=== PATIENT | male | born 1990 | race Caucasian/White ===

== ENCOUNTER 2017-09-02 16:03 | Emergency (ER) | END 2017-09-02 18:30 | disposition home or self-care (01) ==

== ENCOUNTER 2017-10-25 16:38 | Emergency (ER) | END 2017-10-25 17:45 | disposition home or self-care (01) ==

== ENCOUNTER 2019-03-01 17:54 | Emergency (ER) | payer MEDICAID ==
[~2019-03-01] VITALS: Ht 170.2 cm; Wt 76.1 kg
[~2019-03-01 17:54] MED LIST: BEN25 PO; BENZ12LI MM; CARB15DR50 LEFT EAR; CLOT30CR24 TOP; DIAZ5TAB PO; FLUO60OI TOP; HC30CR25 TOP; HYDR-762 PO; IBUP-1542 PO; LD2VS100B MM; PHEN177S43 MT; PRED20TA PO; TRAM50TA2 PO
[2019-03-01 18:11] VITALS: Ht 170.2 cm; Wt 76.1 kg
[2019-03-01] MEDS ORDERED: ACETAMINOPHEN 325 MG TAB PO ONE (19:00)
[2019-03-01] MEDS ORDERED: SOD CHLORIDE 0.9% 100 ML ONE (20:59)
[2019-03-01] MEDS ORDERED: IOHEXOL 100 ML ONE (20:59)
--- NOTE | 2019-03-01 22:08 | ERD ---
ER Documentation Chief Complaint Chief Complaint Pt with GONZALEZ since last night , hx of aneurism HPI 28-year-old male presents with a history of head injury after he bumped his head on a shelf last night. Patient is concerned because he has a history of basilar tip aneurysm treated with coiling in 2014. He has had additional visits for minor head injury since that time with no bleeding and stable treatment of his aneurysm. Denies any vomiting, neurologic deficits, significant headache. He has mild pain in his scalp where he hit his head last night. He has not had follow-up with his neurosurgeon since treatment. ROS All systems reviewed and are negative except as per history of present illness. Medications Home Meds Active Scripts Fluocinonide* (Fluocinonide* Oint) 0.05%-60 Gm Oint..gm., 1 APPLIC TOP BID, #1 BOT Prov:LEANNE LYONS PA-C 09/21/18 Diphenhydramine Hcl* (Benadryl*) 25 Mg Cap, 25 MG PO Q6, #30 CAP Prov:LEANNE LYONS PA-C 10/25/17 Prednisone* (Prednisone*) 20 Mg Tab, 40 MG PO DAILY for 5 Days, TAB Prov:LEANNE LYONS PA-C 10/25/17 Clotrimazole* (Clotrimazole* AF) 1% - 30 Gm Cream.gm., 1 APPLIC TOP BID for 7 Days, #1 TUB Prov:DACIA ISBELL PA-C 09/02/17 Hydrocortisone* Topical (Hydrocortisone* Topical) 2.5%-28.3 Gm Cream..g., 1 APPLIC TOP BID, #1 TUB Prov:DACIA ISBELL PA-C 09/02/17 Ibuprofen* (Motrin*) 600 Mg Tab, 600 MG PO Q6, #30 TAB Prov:EDI CORRAL 01/26/16 Carbamide Peroxide* (Debrox*) 6.5% - 15 Ml Drops, 10 DROP LEFT EAR BID for 5 Days, BOTTLE Prov:EDI CORRAL 01/26/16 Tramadol HCl (Tramadol HCl) 50 Mg Tablet, 50 MG PO Q6 PRN for PAIN, #15 TAB Prov:BRITTNI JORGENSEN COLLATERAL CLERK 11/16/15 Phenol* (Chloraseptic* [place]) 177 Ml [place].pump, 2 SPRAY MT Q2H PRN for SORE THROAT for 7 Days, BOTTLE Prov:HERMILO HERRMANN MD 06/21/15 Hydrocodone Bit-Acetaminophen* ([place]*) 10-325 Mg Tablet, 1 TAB PO Q6 PRN for PAIN, #7 TAB Prov:HERMILO HERRMANN MD 06/21/15 Benzocaine (Anbesol) 12 Ml Liquid, 12 ML MM BID for 7 Days Prov:DEBRA CARREON PA-C 04/22/15 Ibuprofen* (Ibuprofen*) 600 Mg Tablet, 600 MG PO Q6, #30 TAB Prov:DEBRA CARREON PA-C 04/22/15 Lidocaine Viscous 2%* (Lidocaine Viscous 2%*) 100 Ml Soln, 15 ML MM QID for 7 Days, ML Prov:DEBRA CARREON PA-C 04/22/15 Hydrocodone Bit-Acetaminophen* ([place]*) 10-325 Mg Tablet, 1 TAB PO Q6 PRN for PAIN, #20 TAB Prov:RICKI ALVA MD 01/23/15 Diazepam* (Valium*) 5 Mg Tablet, 5 MG PO Q8 PRN for ANXIETY, #10 TAB Prov:RICKI ALVA MD 01/23/15 Hydrocodone Bit-Acetaminophen* ([place]*) 10-325 Mg Tablet, 1 TAB PO Q6 PRN for PAIN, #20 TAB Prov:RICKI ALVA MD 01/23/15 Allergies Allergies: Coded Allergies: No Known Allergy (Unverified , 09/21/18) PMhx/Soc History of Surgery: Yes (TO FIX BRAIN ANEURYSM) Anesthesia Reaction: No Hx Neurological Disorder: Yes (BRAIN ANEURYSM) Hx Respiratory Disorders: No Hx Cardiac Disorders: No Hx Psychiatric Problems: No Hx Miscellaneous Medical Probl: Yes (CHOLESTEROL) Hx Alcohol Use: Yes (SOCIAL) Hx Substance Use: Yes Hx Tobacco Use: Yes (SOMETIMES) Smoking Status: Never smoker FmHx Family History: No diabetes, No coronary disease, No other Physical Exam Vitals Vital Signs Date Temp Pulse Resp B/P (MAP) Pulse Ox O2 O2 Flow FiO2 Time Delivery Rate 03/01/19 99.4 89 16 126/79 96 18:11 (95) Physical Exam Const: No acute distress Head: Atraumatic Eyes: Normal Conjunctiva ENT: Normal External Ears, Nose and Mouth. Neck: Full range of motion. No meningismus. Resp: Clear to auscultation bilaterally Cardio: Regular rate and rhythm, no murmurs Abd: Soft, non tender, non distended. Normal bowel sounds Skin: No petechiae or rashes Back: No midline or flank tenderness Ext: No cyanosis, or edema Neur: Awake and alert Psych: Normal Mood and Affect Result Diagram: 03/01/19195603/01/191956 Results 24 hrs Laboratory Tests Test 03/01/19 19:57 White Blood Count 9.3 10^3/ul Red Blood Count 5.13 10^6/ul Hemoglobin 16.0 g/dl Hematocrit 45.5 % Mean Corpuscular Volume 88.7 fl Mean Corpuscular Hemoglobin 31.2 pg Mean Corpuscular Hemoglobin Concent 35.2 g/dl Red Cell Distribution Width 11.8 % Platelet Count 293 10^3/UL Mean Platelet Volume 10.2 fl Immature Granulocytes % 0.900 % Neutrophils % 55.1 % Lymphocytes % 31.3 % Monocytes % 10.9 % Eosinophils % 1.2 % Basophils % 0.6 % Nucleated Red Blood Cells % 0.0 /100WBC Immature Granulocytes # 0.080 10^3/ul Neutrophils # 5.1 10^3/ul Lymphocytes # 2.9 10^3/ul Monocytes # 1.0 10^3/ul Eosinophils # 0.1 10^3/ul Basophils # 0.1 10^3/ul Nucleated Red Blood Cells # 0.0 10^3/ul Sodium Level 142 mmol/L Potassium Level 4.0 mmol/L Chloride Level 108 mmol/L Carbon Dioxide Level 25 mmol/L Anion Gap 9 Blood Urea Nitrogen 20 mg/dl Creatinine 0.85 mg/dl Est Glomerular Filtrat Rate mL/min > 60 mL/min Glucose Level 94 mg/dl Calcium Level 9.6 mg/dl Current Medications Medications Dose Sig/Dee Start Time Status Last (Trade) Ordered Route PRN Stop Time Admin Dose Reason Admin 650 mg ONCE ONCE 03/01/19 DC 03/01/19 Acetaminophen PO 19:00 19:34 (Tylenol 03/01/19 19:01 Tab) Sodium 100 ml @ [facility] 03/01/19 DC Chloride ONCE .ROUTE 20:59 03/01/19 21:00 Iohexol 100 ml @ ud [facility] 03/01/19 DC ONCE .ROUTE 20:59 03/01/19 21:00 Procedures/MDM PROCEDURE: CT Brain without contrast. CLINICAL INDICATION: Headache, injury. History of aneurysm coiling. TECHNIQUE: A CT of the brain was performed on a multi-slice CT scanner utilizing axial imaging from the skull base through the vertex without IV contrast. Multiplanar reformatted images were made. Images were reviewed on a PACS workstation. One or more the following dose reduction techniques were utilized: Automated exposure control, adjustment of mA/ or kV according to patient's size, or use of iterative reconstruction technique. DICOM images are available for review. The CTDIvol is 39.6 mGy and the DLP is 713.5 mGycm. 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 On the prior CT, there was evidence of a stent within what may have been the very distal portion of the basilar artery just above the coils. On the current examination, this stent appears somewhat displaced compared to the prior position and there is a greater rounded area of hyperdensity measuring approximately 1.8 x 1.0 cm. An area of acute hemorrhage versus aneurysm cannot be excluded and further evaluation with CT is recommended. Of interest, there is no gross evidence of surrounding vasogenic edema suggesting that the findings may reflect development of an aneurysm beyond the stent. There is no midline shift. The cisterns appear grossly patent though the lower cisterns are poorly evaluated due to extensive scatter artifact. Overall the ventricles and sulci are normal in size and configuration. There is a small right frontal scalp hematoma with no underlying fracture. IMPRESSION: 1. New hyperdensity above the stent and aneurysm coil concerning for interval development of an aneurysm beyond the basilar stent versus possible hemorrhage. Follow-up with CT angiography is recommended. 2. There is no evidence of significant mass effect, midline shift or gross evidence of edema surrounding this area of hyperdensity. 3. Extensive scatter artifact from aneurysm coils seen in the distal basilar artery, unchanged. Critical results: A call report was made to Orlando Guajardo on 03/01/2019 7:38 PM following completion of the examination by Dr. Dominguez. RPTAT: [facility] .Catherine Dominguez MD, MD Date Time Electronically viewed and signed by .Catherine Dominguez MD, on 03/01/2019 19:42 PROCEDURE: CTA Head with contrast. CLINICAL INDICATION: Headache, history of aneurysm coil. TECHNIQUE: The study was performed utilizing a multi-slice multidetector CT scanner. Direct spiral 1 mm axial sections were obtained through the intracra nial vasculature with the use of 100 cc of Omnipaque 350 nonionic intravenous contrast material. Coronal and sagittal as well as maximal intensity projection reformations were obtained. 1 or more of the following dose reduction techniques were utilized: Automated exposure control, adjustment of the mA and/or kV according to patient's size, iterative reconstruction technique. The images were reviewed on a PACS workstation. DICOM images are available. 3D volume rendered (or MIP) imaging was performed. RADIATION DOSE: CTDIvol: 105.09 mGy mGy DLP: 663.4 mGy.cm mGy-cm COMPARISON: CT head without contrast 03/09/2019, 11/16/2015, 06/21/2015, 01/23/2015, 12/29/2014, MRI brain of 12/29/2014 FINDINGS: CTA head: There is markedly severe streak artifact involving the skull base due to large coil mass in the region of the large basilar tip aneurysm measuring at least 2.4 x 2.4 x 2.4 cm. Along the superior - right aspect of the coil mass, there is a 14 x 11 x 12 mm(AP x TR x CC) recurrent aneurysm. The petrous and and proximal cavernous segments of the internal carotid arteries are normal in appearance. There is extensive streak artifact at the level of the skull base, significantly limiting evaluation of the cavernous and supraclinoid internal carotid arteries as well as the proximal aspect of the middle cerebral arteries and. There appears to be flow in the bilateral M1 segments, though limited due to streak artifact. There is normal filling of the M2 segments within the sylvian fissures. The proximal anterior cerebral arteries are not well evaluated. A2 and A3 segments of the anterior cerebral arteries as well as their branches are normal in appearance. The anterior communicating artery is patent. The posterior communicating arteries are patent. The vertebral arteries are codominant. The basilar artery is not well evaluated streak artifact. The posterior cerebral arteries are not well evaluated due to extensive streak artifact. CT head wo: There is no intracranial hemorrhage, extra-axial fluid collection, mass lesion, midline shift or hydrocephalus. The ventricles, sulci and cisterns are within normal limits. The white matter is unremarkable. The garcia-white matter differentiation is preserved. The basal cisterns are patent. The midline structures are intact. The orbits, calvarium and extracranial soft tissues are normal in appearance. The visualized paranasal sinuses, mastoid air cells and middle ear cavities are normally aerated. IMPRESSION: 1. Interval development of 14 x 11 x 12 mm recurrent aneurysm along the superior - right aspect of the coil mass. Number 2. Redemonstration of extensive coil is in the known massive basilar tip aneurysm. There is associated streak artifact, significantly limiting evaluation of the skull base structures. 3. No acute intracranial abnormality. No intracranial hemorrhage, mass lesion or hydrocephalous. CRITICAL RESULT: The above findings were discussed with Patient's physician Orlando Hawkins by telephone on 03/01/2019 9:51:48 PM. Presents after a minor head injury last night. He has no signs or symptoms of intracranial bleeding, fracture. He does however demonstrate a recurrent aneurysm approximately 10 mm. There is no current signs or symptoms of being symptomatic from this recurrent aneurysm. He will be appropriate for outpatient although prompt follow-up with his neurosurgeon. Patient advised he should see his neurosurgeon for further treatment of his recurrent asymptomatic aneurysm. Patient understands the necessity of following up with a specialist otherwise returning to the ER for new worsening symptoms such as changes, vomiting, worsening headache, additional new worsening symptoms. The patient was stable with no new complaints during the ER course. Clinically, there is no current evidence to suggest meningitis, sepsis, acute abdomen, pneumonia, stroke, acute coronary syndrome, pulmonary embolism, aortic dissection or any other emergent condition appearing to require further evaluation or hospitalization. Patient counseled regarding my diagnostic impression and care plan. Prior to discharge all questions answered. Pt agrees with treatment plan and understands strict return precautions. Pt is instructed to follow up with primary care provider within 24-48 hours. Precautionary instructions provided including instructions to return to the ER if not improving or for any worsening or changing symptoms or concerns. Disclaimer: Inadvertent spelling and grammatical errors are likely due to EHR/dictation software use and do not reflect on the overall quality of patient care. Also, please note that the electronic time recorded on this note does not necessarily reflect the actual time of the patient encounter. Departure Diagnosis: Primary Impression: Aneurysm Additional Impression: Head injury Encounter type: initial encounter Qualified Codes: S09.90XA - Unspecified injury of head, initial encounter Condition: Stable Patient Instructions: HEAD INJURY, No Wake-Up (Adult) Referrals: NO PRIMARY,CARE PHYSICIAN (PCP) Additional Instructions: No bleeding or acute injury today. However, there is a new aneurysm which has grown since the previous one was treated. See your neurosurgeon for follow-up. Recheck otherwise for vomiting, worsening headaches, new worsening symptoms. ORLANDO HAWKINS MD Mar 01, 2019 22:08
[2019-03-01 22:45] VITALS: BP 119/74; PULSE 58; RESP 16
== END 2019-03-01 22:45 | disposition home or self-care (01) ==
LOC: FTE 17:54
DX: S09.90XA Unspecified injury of head, initial encounter (principal); I67.1 Cerebral aneurysm, nonruptured; W22.8XXA Striking against or struck by other objects, initial encounter; Y92.9 Unspecified place or not applicable; Z87.891 Personal history of nicotine dependence
CPT/HCPCS: 36415; 70450; 70496; 80048; 85025; Q9967; Z7502; Z7610

== ENCOUNTER 2019-04-16 11:30 | Emergency (ER) | payer MEDICAID ==
[~2019-04-16] VITALS: Ht 165.1 cm; Wt 75.4 kg
[2019-04-16 11:48] VITALS: Ht 165.1 cm; Wt 75.4 kg
[2019-04-16] MEDS ORDERED: morphine 4 MG/ML VIAL IV STA (12:05)
[2019-04-16] MEDS ORDERED: ONDANSETRON 4 MG INJ IV STA (12:05)
[2019-04-16] MEDS ORDERED: SOD CHLORIDE 0.9% 1,000 ML IV STA (12:05)
[2019-04-16] MEDS ORDERED: IOHEXOL 100 ML ONE (12:37)
[2019-04-16] MEDS ORDERED: SOD CHLORIDE 0.9% 100 ML ONE (12:37)
[2019-04-16 14:00] VITALS: BP 115/82; PULSE 58; RESP 13
== END 2019-04-16 15:27 | disposition home or self-care (01) ==
LOC: E/R 11:30
DX: I67.1 Cerebral aneurysm, nonruptured (principal); R40.2142 Coma scale, eyes open, spontaneous, at arrival to emergency department; R40.2362 Coma scale, best motor response, obeys commands, at arrival to emergency department; R40.2252 Coma scale, best verbal response, oriented, at arrival to emergency department; Z87.891 Personal history of nicotine dependence
CPT/HCPCS: 36415; 70450; 70496; 80048; 85025; 85610; 85730; 86850; 86900; 86901; 96374; 96375; J2270; J2405; J7030; Q9967; Z7502; Z7610